=== PATIENT | female | born 1940 | race Caucasian/White ===

== ENCOUNTER 2017-09-13 07:36 | Emergency (ER) | payer OTHER ==
[~2017-09-13] VITALS: Ht 157.5 cm; Wt 56.7 kg
[2017-09-13 07:40] VITALS: BP_SYST 163
--- NOTE | 2017-09-13 07:45 | NUR ---
Pt placed to ER waiting room in stable condition.
[2017-09-13 08:30] LABS: BASOPHILS # (AUTO) 0.1 K/uL (0.0-0.2); BASOPHILS % (AUTO) 1.1 % (0.0-2.0); EOSINOPHILS % (AUTO) 0.1 % (0.0-4.0); HEMATOCRIT 45.9 % (36-48); HEMOGLOBIN 14.9 g/dL (12.0-16.0); LYMPHOCYTES # (AUTO) 0.6 K/uL (1.0-5.5); LYMPHOCYTES % (AUTO) 4.8 % (20.5-51.5); MEAN CORPUSCULAR HEMOGLOBIN 28 pg (27-31); MEAN CORPUSCULAR HGB CONC 32 % (32-36); MEAN CORPUSCULAR VOLUME 87 fL (79.0-98.0); MONOCYTES # (AUTO) 0.6 K/uL (0.0-1.0); MONOCYTES % (AUTO) 5.4 % (1.7-9.3); NEUTROPHILS # (AUTO) 10.5 K/uL (1.8-7.7); NEUTROPHILS % (AUTO) 88.6 % (40.0-70.0); PLATELET COUNT (AUTO) 146 K/uL (130-430); RED BLOOD CELL COUNT(AUTO) 5.26 MIL/uL (4.2-6.2); RED CELL DISTRIBUTION WIDTH 12.8 % (9.0-15.0); WHITE BLOOD COUNT (AUTO) 11.8 K/uL (4.8-10.8)
--- NOTE | 2017-09-13 08:45 | NUR ---
Pt placed to ER bed 04. Report given to JALEN Duncan.
--- NOTE | 2017-09-13 08:48 | NUR ---
PT AAOx4, ABLE TO VERBALIZE NEEDS. PT STATES SHE HAS HAD FEVER, COUGH, RUNNY NOSE x5 DAYS, PT DENIES SHORTNESS OF BREATH/CHEST PAIN. PT STATES SHE HAD PNEUMONIA 6 MONTHS AGO AND HAD SIMILAR SYMPTOMS. PT STATES SHE HAS BEEN TAKING IBUPROFEN FOR FEVER AND IT HAS HELPED, PT HAS TEMP 100.7F AT THIS TIME. NO OTHER INJURIES/COMPLAINTS PER PT OR NOTED.
[2017-09-13 08:56] LABS: ANION GAP 12 (5-15); CALCIUM 9.2 mg/dL (8.4-11.0); CHLORIDE 103 mmol/L (98-107); CREATININE 1.04 mg/dL (0.55-1.30); GLUCOSE 154 mg/dL (70-99); POTASSIUM 3.5 mmol/L (3.5-5.1); SODIUM SERUM 141 mmol/L (136-145); UREA NITROGEN, BLOOD 19 mg/dL (8-21)
[2017-09-13 09:00] LABS: ALANINE AMINOTRANSFERASE 31 U/L (12-78); ALBUMIN 3.5 g/dL (3.4-4.8); ASPARTATE AMINOTRANSFERASE 23 U/L (10-37); TOTAL BILIRUBIN 0.8 mg/dL (0.0-1.0)
[2017-09-13 09:36] LABS: BILIRUBIN,URINE NEGATIVE (NEGATIVE); BLOOD, URINE NEGATIVE (NEGATIVE); CLARITY/URINE CLEAR (CLEAR); COLOR,URINE YELLOW (YELLOW); GLUCOSE,URINE NEGATIVE (NEGATIVE); KETONES,URINE 1+ (NEGATIVE); LEUKOCYTE ESTERASE ,URINE NEGATIVE (NEGATIVE); NITRITE, URINE NEGATIVE (NEGATIVE); PH,URINE 5.5 (5.0-8.0); PROTEIN URINE 1+ (NEGATIVE); UROBILINOGEN,URINE 0.2 (0.2-1.0)
[2017-09-13 09:38] LABS: INFLUENZA A&B ANTIGEN SCREEN NEGATIVE FOR A & B (NEGATIVE); STREPTOCOCCUS A SCREEN (RAPID) NEGATIVE (NEGATIVE)
[2017-09-13] MEDS ORDERED: ALBUTEROL SULFATE 0.083% 2.5 MG/3 ML VIAL.NEB IH ONE (10:00)
[2017-09-13] MEDS ORDERED: cefTRIAXone 1 GM in D5W 50 ML IV ONE (10:00)
[2017-09-13] MEDS ORDERED: IPRATROPIUM BROM 0.5 MG/2.5 ML VIAL.NEB (ATROVENT) IH ONE (10:00)
[2017-09-13] MEDS ORDERED: methylPREDNISolone SOD SUCC/PF 62.5 MG/ML VIAL IVP ONE (10:00)
[2017-09-13] MEDS ORDERED: MAGNESIUM SULFATE 1 GM in NS 50 ML IV ONE (10:00)
[2017-09-13] MEDS ORDERED: ALBUTEROL SULFATE 0.083% 2.5 MG/3 ML VIAL.NEB INH ONE (10:01)
[2017-09-13] MEDS ORDERED: cefTRIAXone 1 GM VIAL ONE (10:06)
[2017-09-13] MEDS ORDERED: MAGNESIUM SULFATE 1 GM/2 ML VIAL ONE (10:06)
[2017-09-13 11:40] LABS: BACTERIA,URINE FEW /HPF (None Seen); RBC,URINE 0-3 /HPF (0-3); WBC,URINE 0-3 /HPF (0-3)
--- NOTE | 2017-09-13 12:01 | NUR ---
Patient given written and verbal discharge instructions and verbalizes understanding. ER MD discussed with patient the results and treatment provided. Patient in stable condition. ID arm band removed. IV catheter removed intact and dressing applied, no active bleeding. Rx of ZITHROMAX, PROVENTIL INHALER, TYLENOL WITH CODEINS given. Patient educated on pain management and to follow up with PMD. Pain Scale 0/10. Opportunity for questions provided and answered.
[2017-09-13 12:04] VITALS: BP_SYST 146
== END 2017-09-13 12:03 | disposition home or self-care (01) ==
LOC: SED 07:36
DX: J18.9 Pneumonia, unspecified organism (principal); J44.9 Chronic obstructive pulmonary disease, unspecified
CPT/HCPCS: 36415; 71046; 80053; 81000; 85025; 86403; 86710; 87081; 94640; 96365; 96367; 96375; 99285; J0696; J2930; J3475; J7060

== ENCOUNTER 2023-04-21 14:27 | Inpatient (IN) | payer OTHER ==
[~2023-04-21] VITALS: Ht 157.5 cm; Wt 60.3 kg
[2023-04-21] MEDS ORDERED: KETOROLAC TROMETHAMINE 30 MG VIAL IM ONE (15:00)
[2023-04-21 15:18] VITALS: BP_SYST 162; PULSE 80; RESP 18; TEMP 98.2; O2SAT 95
[2023-04-21] MEDS ORDERED: ONDANSETRON HCL 4 MG/2 ML VIAL IVP ONE (17:15)
[2023-04-21] MEDS ORDERED: MORPHINE 4 MG INJ. 4 MG/ML VIAL IVP ONE (17:15)
[2023-04-21] MEDS ORDERED: NACL 0.9% 1,000 ML IV ONE (17:15)
[2023-04-21 18:05] LABS: BASOPHILS # (AUTO) 0.1 K/uL (0.0-0.2); BASOPHILS % (AUTO) 0.6 % (0.0-2.0); EOSINOPHILS % (AUTO) 0.2 % (0.0-4.0); HEMATOCRIT 45.1 % (36-48); HEMOGLOBIN 14.5 g/dL (12.0-16.0); LYMPHOCYTES # (AUTO) 1.2 K/uL (1.0-5.5); LYMPHOCYTES % (AUTO) 7.1 % (20.5-51.5); MEAN CORPUSCULAR HEMOGLOBIN 29 pg (27-31); MEAN CORPUSCULAR HGB CONC 32 % (32-36); MEAN CORPUSCULAR VOLUME 89 fL (79.0-98.0); MONOCYTES # (AUTO) 1.1 K/uL (0.0-1.0); MONOCYTES % (AUTO) 6.5 % (1.7-9.3); NEUTROPHILS # (AUTO) 14.8 K/uL (1.8-7.7); NEUTROPHILS % (AUTO) 85.6 % (40.0-70.0); PLATELET COUNT (AUTO) 224 K/uL (130-430); RED BLOOD CELL COUNT(AUTO) 5.08 MIL/uL (4.2-6.2); RED CELL DISTRIBUTION WIDTH 13.8 % (9.0-15.0); WHITE BLOOD COUNT (AUTO) 17.3 K/uL (4.8-10.8)
[2023-04-21 18:06] LABS: ALANINE AMINOTRANSFERASE 19 U/L (12-78); ANION GAP 8 (5-15); ASPARTATE AMINOTRANSFERASE 17 U/L (10-37); CALCIUM 9.4 mg/dL (8.4-11.0); CARBON DIOXIDE 25 mmol/L (23-29); CHLORIDE 106 mmol/L (98-107); CREATININE 1.32 mg/dL (0.55-1.30); GLUCOSE 191 mg/dL (74-106); POTASSIUM 4.1 mmol/L (3.5-5.1); SODIUM SERUM 139 mmol/L (136-145); TOTAL BILIRUBIN 0.3 mg/dL (0.0-1.0); UREA NITROGEN, BLOOD 44 mg/dL (8-21)
[2023-04-21] MEDS ORDERED: BACITRACIN 1 GM OINT TP ONE (20:33)
[2023-04-21] MEDS ORDERED: D5/0.45 NS 1,000 ML IV ONE (21:30)
[2023-04-21] MEDS ORDERED: MORPHINE 4 MG INJ. 4 MG/ML VIAL ONE (21:36)
[2023-04-21] MEDS ORDERED: ONDANSETRON HCL 4 MG/2 ML VIAL ONE (21:36)
[2023-04-21] MEDS ORDERED: FAMO20TA8 PO (22:55)
[2023-04-21] MEDS ORDERED: DILT300C54 PO (22:55)
[2023-04-21] MEDS ORDERED: VALS160T2 PO (22:55)
[2023-04-21] MEDS ORDERED: AMLO10TA88 PO (22:55)
[2023-04-22] VITALS (10 sets, daily range): BP systolic 16–176; PULSE 85–91; RESP 14–18; TEMP 96.2–98.4; O2SAT 94–98
[2023-04-22] MEDS ORDERED: LORazepam 2 MG/ML VIAL IVP PRN (00:45)
[2023-04-22] MEDS ORDERED: ONDANSETRON HCL 4 MG/2 ML VIAL IVP PRN ×2 (00:45→19:30)
[2023-04-22] MEDS ORDERED: NALOXONE HCL 0.4 MG/ML AMP (NARCAN) IVP PRN ×2 (00:45→19:30)
[2023-04-22] MEDS ORDERED: MORPHINE 4 MG INJ. 4 MG/ML VIAL IVP PRN ×3 (00:45→19:30)
[2023-04-22 05:29] LABS: BILIRUBIN,URINE NEGATIVE (NEGATIVE); CLARITY/URINE SL CLOUDY (CLEAR); COLOR,URINE YELLOW (YELLOW); GLUCOSE,URINE NEGATIVE (NEGATIVE); KETONES,URINE NEGATIVE (NEGATIVE); LEUKOCYTE ESTERASE ,URINE 1+ (NEGATIVE); NITRITE, URINE POSITIVE (NEGATIVE); PROTEIN URINE NEGATIVE (NEGATIVE); UROBILINOGEN,URINE 0.2 (0.2-1.0)
[2023-04-22 06:54] LABS: BASOPHILS # (AUTO) 0.1 K/uL (0.0-0.2); BASOPHILS % (AUTO) 0.7 % (0.0-2.0); EOSINOPHILS # (AUTO) 0.2 K/uL (0.0-0.4); EOSINOPHILS % (AUTO) 1.9 % (0.0-4.0); HEMATOCRIT 40.3 % (36-48); HEMOGLOBIN 13.1 g/dL (12.0-16.0); LYMPHOCYTES % (AUTO) 9.1 % (20.5-51.5); MEAN CORPUSCULAR HEMOGLOBIN 29 pg (27-31); MEAN CORPUSCULAR HGB CONC 33 % (32-36); MEAN CORPUSCULAR VOLUME 89 fL (79.0-98.0); MONOCYTES # (AUTO) 0.8 K/uL (0.0-1.0); MONOCYTES % (AUTO) 7.5 % (1.7-9.3); NEUTROPHILS # (AUTO) 8.9 K/uL (1.8-7.7); NEUTROPHILS % (AUTO) 80.8 % (40.0-70.0); PLATELET COUNT (AUTO) 168 K/uL (130-430); RED BLOOD CELL COUNT(AUTO) 4.52 MIL/uL (4.2-6.2); RED CELL DISTRIBUTION WIDTH 13.5 % (9.0-15.0)
[2023-04-22 07:22] LABS: BLOOD, URINE TRACE (NEGATIVE)
[2023-04-22 07:25] LABS: ANION GAP 8 (5-15); CALCIUM 8.3 mg/dL (8.4-11.0); CARBON DIOXIDE 25 mmol/L (23-29); CHLORIDE 110 mmol/L (98-107); CREATININE 0.84 mg/dL (0.55-1.30); GLUCOSE 169 mg/dL (74-106); POTASSIUM 3.9 mmol/L (3.5-5.1); SODIUM SERUM 143 mmol/L (136-145); UREA NITROGEN, BLOOD 29 mg/dL (8-21)
[2023-04-22 07:43] LABS: BACTERIA,URINE MANY /HPF (None Seen); MUCUS,URINE 1+ /LPF (None Seen)
[2023-04-22] MEDS: MORPHINE 2 MG/ML INJ. SYRINGE IVP PRN (11:01)
[2023-04-22] MEDS ORDERED: CARVEDILOL 12.5 MG TABLET (COREG) PO ONE (12:00)
[2023-04-22] MEDS ORDERED: cefTRIAXone 1 GM in D5W 50 ML IV SCH (12:00)
[2023-04-22] MEDS ORDERED: fentaNYL CITRATE/PF 100 MCG/2 ML AMP ONE (17:27)
[2023-04-22] MEDS ORDERED: LR 1,000 ML IV.SOLN IV ONE (17:27)
[2023-04-22] MEDS ORDERED: NS IRRIG SOLN 1000 ML IR ONE (17:27)
[2023-04-22] MEDS ORDERED: SEVOFLURANE 15 MIN GAS INH ONE (17:27)
[2023-04-22] MEDS ORDERED: LIDOCAINE 2%, 20 ML MDV ONE (17:27)
[2023-04-22] MEDS ORDERED: ePHEDrine sulfate 50 MG/ML VIAL ONE (17:27)
[2023-04-22] MEDS ORDERED: PROPOFOL 200MG/ 20ML VIAL (DIPRIVAN) IV ONE (17:27)
[2023-04-22] MEDS ORDERED: cefTRIAXone 1 GM VIAL ONE (17:27)
[2023-04-22] MEDS ORDERED: LIDOCAINE/EPI 1% 1:100000 20 ML VIAL ONE (17:27)
[2023-04-22] MEDS ORDERED: TRANEXAMIC ACID 1,000 MG/10 ML VIAL ONE (17:27)
[2023-04-22] MEDS ORDERED: ONDANSETRON HCL 4 MG/2 ML VIAL ONE (17:27)
[2023-04-22] MEDS ORDERED: BUPIVACAINE /PF 0.5% 30 ML VIAL ONE (17:27)
[2023-04-22] MEDS ORDERED: LR 1,000 ML IV SCH (19:30)
[2023-04-22] MEDS ORDERED: VALSARTAN Non-Formulary 160 MG TABLET PO ONE (22:15)
[2023-04-22] MEDS: ceFAZolin SODIUM 2 GM in D5W 100 ML IV SCH (22:56)
[2023-04-22] MEDS: traMADol HCL HCL 50 MG TABLET (ULTRAM) PO PRN (23:29)
[2023-04-23] MEDS ORDERED: amLODIPine BESYLATE 10 MG TABLET PO ONE
[2023-04-23 00:33] VITALS: BP_SYST 158; PULSE 85; RESP 14; TEMP 96.2; O2SAT 95
[2023-04-23 05:01] LABS: BASOPHILS % (AUTO) 0.4 % (0.0-2.0); EOSINOPHILS # (AUTO) 0.2 K/uL (0.0-0.4); EOSINOPHILS % (AUTO) 2.1 % (0.0-4.0); HEMATOCRIT 38.8 % (36-48); HEMOGLOBIN 12.6 g/dL (12.0-16.0); LYMPHOCYTES # (AUTO) 0.8 K/uL (1.0-5.5); LYMPHOCYTES % (AUTO) 6.8 % (20.5-51.5); MEAN CORPUSCULAR HEMOGLOBIN 29 pg (27-31); MEAN CORPUSCULAR HGB CONC 33 % (32-36); MEAN CORPUSCULAR VOLUME 89 fL (79.0-98.0); MONOCYTES % (AUTO) 8.2 % (1.7-9.3); NEUTROPHILS # (AUTO) 9.7 K/uL (1.8-7.7); NEUTROPHILS % (AUTO) 82.5 % (40.0-70.0); PLATELET COUNT (AUTO) 148 K/uL (130-430); RED BLOOD CELL COUNT(AUTO) 4.36 MIL/uL (4.2-6.2); RED CELL DISTRIBUTION WIDTH 13.5 % (9.0-15.0); WHITE BLOOD COUNT (AUTO) 11.7 K/uL (4.8-10.8)
[2023-04-23 05:16] LABS: ERYTHROCYTE SEDIMENTATION RATE 5 MM/HR (0-20)
[2023-04-23 05:40] LABS: ANION GAP 5 (5-15); CALCIUM 8.2 mg/dL (8.4-11.0); CARBON DIOXIDE 29 mmol/L (23-29); CHLORIDE 107 mmol/L (98-107); CREATININE 0.79 mg/dL (0.55-1.30); GLUCOSE 141 mg/dL (74-106); POTASSIUM 3.9 mmol/L (3.5-5.1); SODIUM SERUM 141 mmol/L (136-145); UREA NITROGEN, BLOOD 17 mg/dL (8-21)
[2023-04-23] MEDS: ceFAZolin SODIUM 2 GM in D5W 100 ML IV SCH ×2 (05:59→14:43)
[2023-04-23] MEDS: ENOXAPARIN SODIUM 40 MG/0.4 ML SYRINGE SUBCUT SCH (10:50)
[2023-04-23] MEDS: traMADol HCL HCL 50 MG TABLET (ULTRAM) PO PRN ×2 (10:51→20:58)
[2023-04-23 12:11] VITALS: BP_SYST 173; PULSE 92; RESP 16; TEMP 96.9; O2SAT 96
[2023-04-23] MEDS: MORPHINE 2 MG/ML INJ. SYRINGE IVP PRN (14:37)
[2023-04-23 20:00] VITALS: BP_SYST 195; PULSE 92; RESP 18; TEMP 98.3; O2SAT 96
[2023-04-23] MEDS ORDERED: cloNIDine HCL 0.2 MG TABLET PO PRN (21:15)
[2023-04-24] VITALS (7 sets, daily range): BP systolic 133–163; PULSE 78–88; RESP 16–18; TEMP 98.3–99.2; O2SAT 93–96
[2023-04-24 06:49] LABS: BASOPHILS % (AUTO) 0.5 % (0.0-2.0); EOSINOPHILS # (AUTO) 0.2 K/uL (0.0-0.4); EOSINOPHILS % (AUTO) 2.4 % (0.0-4.0); HEMATOCRIT 39.4 % (36-48); HEMOGLOBIN 12.7 g/dL (12.0-16.0); LYMPHOCYTES # (AUTO) 1.4 K/uL (1.0-5.5); LYMPHOCYTES % (AUTO) 14.3 % (20.5-51.5); MEAN CORPUSCULAR HEMOGLOBIN 29 pg (27-31); MEAN CORPUSCULAR HGB CONC 32 % (32-36); MEAN CORPUSCULAR VOLUME 89 fL (79.0-98.0); MONOCYTES % (AUTO) 10.3 % (1.7-9.3); NEUTROPHILS # (AUTO) 7.1 K/uL (1.8-7.7); NEUTROPHILS % (AUTO) 72.5 % (40.0-70.0); PLATELET COUNT (AUTO) 151 K/uL (130-430); RED BLOOD CELL COUNT(AUTO) 4.43 MIL/uL (4.2-6.2); RED CELL DISTRIBUTION WIDTH 13.1 % (9.0-15.0); WHITE BLOOD COUNT (AUTO) 9.8 K/uL (4.8-10.8)
[2023-04-24 07:04] LABS: ANION GAP 6 (5-15); CALCIUM 8.5 mg/dL (8.4-11.0); CARBON DIOXIDE 27 mmol/L (23-29); CHLORIDE 104 mmol/L (98-107); CREATININE 0.75 mg/dL (0.55-1.30); GLUCOSE 133 mg/dL (74-106); POTASSIUM 3.6 mmol/L (3.5-5.1); SODIUM SERUM 137 mmol/L (136-145); UREA NITROGEN, BLOOD 18 mg/dL (8-21)
[2023-04-24 07:19] LABS: ERYTHROCYTE SEDIMENTATION RATE 25 MM/HR (0-20)
[2023-04-24] MEDS: traMADol HCL HCL 50 MG TABLET (ULTRAM) PO PRN ×3 (08:15→21:39)
[2023-04-24] MEDS: ENOXAPARIN SODIUM 40 MG/0.4 ML SYRINGE SUBCUT SCH (09:42)
[2023-04-24] MEDS: FAMOTIDINE 20 MG TABLET PO SCH (09:42)
[2023-04-24] MEDS: amLODIPine BESYLATE 10 MG TABLET PO SCH (09:44)
[2023-04-24] MEDS: DILTIAZEM HCL 120 MG CAP.SR.24H PO SCH (09:44)
[2023-04-24] MEDS: cefTRIAXone 1 GM in D5W 50 ML IV SCH (11:34)
[2023-04-24] MEDS ORDERED: LOSARTAN POTASSIUM 50 MG TABLET (COZAAR) PO SCH (21:00)
[2023-04-25 00:38] VITALS: BP_SYST 158; PULSE 82; RESP 16; TEMP 97.1; O2SAT 94
[2023-04-25 07:26] LABS: BASOPHILS # (AUTO) 0.1 K/uL (0.0-0.2); BASOPHILS % (AUTO) 0.8 % (0.0-2.0); EOSINOPHILS # (AUTO) 0.3 K/uL (0.0-0.4); EOSINOPHILS % (AUTO) 2.6 % (0.0-4.0); HEMATOCRIT 37.2 % (36-48); HEMOGLOBIN 12.2 g/dL (12.0-16.0); LYMPHOCYTES # (AUTO) 1.2 K/uL (1.0-5.5); MEAN CORPUSCULAR HEMOGLOBIN 29 pg (27-31); MEAN CORPUSCULAR HGB CONC 33 % (32-36); MEAN CORPUSCULAR VOLUME 88 fL (79.0-98.0); MONOCYTES # (AUTO) 1.1 K/uL (0.0-1.0); MONOCYTES % (AUTO) 10.6 % (1.7-9.3); NEUTROPHILS # (AUTO) 7.4 K/uL (1.8-7.7); PLATELET COUNT (AUTO) 159 K/uL (130-430); RED BLOOD CELL COUNT(AUTO) 4.23 MIL/uL (4.2-6.2); RED CELL DISTRIBUTION WIDTH 13.4 % (9.0-15.0); WHITE BLOOD COUNT (AUTO) 10.1 K/uL (4.8-10.8)
[2023-04-25 07:36] LABS: ERYTHROCYTE SEDIMENTATION RATE 39 MM/HR (0-20)
[2023-04-25 07:55] LABS: ANION GAP 5 (5-15); CALCIUM 8.7 mg/dL (8.4-11.0); CARBON DIOXIDE 28 mmol/L (23-29); CHLORIDE 102 mmol/L (98-107); CREATININE 0.75 mg/dL (0.55-1.30); GLUCOSE 147 mg/dL (74-106); SODIUM SERUM 135 mmol/L (136-145); UREA NITROGEN, BLOOD 22 mg/dL (8-21)
[2023-04-25 08:00] VITALS: BP_SYST 169; PULSE 63; RESP 14; TEMP 98.1; O2SAT 92
[2023-04-25] MEDS: DILTIAZEM HCL 120 MG CAP.SR.24H PO SCH (08:36)
[2023-04-25] MEDS: traMADol HCL HCL 50 MG TABLET (ULTRAM) PO PRN ×2 (08:37→20:32)
[2023-04-25] MEDS: FAMOTIDINE 20 MG TABLET PO SCH (08:38)
[2023-04-25] MEDS: amLODIPine BESYLATE 10 MG TABLET PO SCH (08:39)
[2023-04-25] MEDS: ENOXAPARIN SODIUM 40 MG/0.4 ML SYRINGE SUBCUT SCH (08:39)
[2023-04-25] MEDS ORDERED: COMMUNICATION ORDER XX ONE (11:30)
[2023-04-25] MEDS: cefTRIAXone 1 GM in D5W 50 ML IV SCH (11:48)
[2023-04-25 12:36] VITALS: BP_SYST 163; PULSE 83; RESP 18; TEMP 97.2; O2SAT 93
[2023-04-25 16:42] VITALS: BP_SYST 165; PULSE 83; RESP 18; TEMP 99.5; O2SAT 90
[2023-04-25 19:30] VITALS: O2SAT 92
[2023-04-25 20:00] VITALS: BP_SYST 168; PULSE 83; RESP 18; TEMP 99; O2SAT 92
[2023-04-25] MEDS: VALSARTAN 160 MG PO SCH (20:31)
[2023-04-26 00:15] VITALS: BP_SYST 157; PULSE 78; RESP 18; TEMP 97.5; O2SAT 91
[2023-04-26] MEDS: MORPHINE 2 MG/ML INJ. SYRINGE IVP PRN (02:32)
[2023-04-26 05:41] LABS: ALANINE AMINOTRANSFERASE 6 U/L (12-78); ALBUMIN 2.3 g/dL (3.4-4.8); ANION GAP 7 (5-15); ASPARTATE AMINOTRANSFERASE 13 U/L (10-37); CALCIUM 8.5 mg/dL (8.4-11.0); CARBON DIOXIDE 27 mmol/L (23-29); CHLORIDE 106 mmol/L (98-107); CREATININE 0.78 mg/dL (0.55-1.30); GLUCOSE 127 mg/dL (74-106); PHOSPHORUS 3.6 mg/dL (2.7-4.5); POTASSIUM 3.8 mmol/L (3.5-5.1); SODIUM SERUM 140 mmol/L (136-145); TOTAL BILIRUBIN 0.3 mg/dL (0.0-1.0); TOTAL PROTEIN, SERUM 5.4 g/dL (6.4-8.3); UREA NITROGEN, BLOOD 19 mg/dL (8-21)
[2023-04-26 05:50] LABS: BASOPHILS # (AUTO) 0.1 K/uL (0.0-0.2); BASOPHILS % (AUTO) 1.1 % (0.0-2.0); EOSINOPHILS # (AUTO) 0.2 K/uL (0.0-0.4); EOSINOPHILS % (AUTO) 1.8 % (0.0-4.0); HEMATOCRIT 36.4 % (36-48); HEMOGLOBIN 12.1 g/dL (12.0-16.0); LYMPHOCYTES % (AUTO) 9.4 % (20.5-51.5); MEAN CORPUSCULAR HEMOGLOBIN 29 pg (27-31); MEAN CORPUSCULAR HGB CONC 33 % (32-36); MEAN CORPUSCULAR VOLUME 87 fL (79.0-98.0); MONOCYTES # (AUTO) 1.1 K/uL (0.0-1.0); NEUTROPHILS # (AUTO) 8.2 K/uL (1.8-7.7); NEUTROPHILS % (AUTO) 77.7 % (40.0-70.0); PLATELET COUNT (AUTO) 161 K/uL (130-430); RED BLOOD CELL COUNT(AUTO) 4.18 MIL/uL (4.2-6.2); RED CELL DISTRIBUTION WIDTH 13.1 % (9.0-15.0); WHITE BLOOD COUNT (AUTO) 10.5 K/uL (4.8-10.8)
[2023-04-26 06:00] LABS: ERYTHROCYTE SEDIMENTATION RATE 41 MM/HR (0-20)
[2023-04-26 08:00] VITALS: BP_SYST 161; PULSE 88; RESP 16; TEMP 98.1; O2SAT 95
[2023-04-26] MEDS: DILTIAZEM HCL 120 MG CAP.SR.24H PO SCH (08:55)
[2023-04-26] MEDS: FAMOTIDINE 20 MG TABLET PO SCH (08:55)
[2023-04-26] MEDS: ENOXAPARIN SODIUM 40 MG/0.4 ML SYRINGE SUBCUT SCH (08:56)
[2023-04-26] MEDS: amLODIPine BESYLATE 10 MG TABLET PO SCH (08:56)
[2023-04-26] MEDS: VALSARTAN 160 MG PO SCH ×2 (08:58→09:05)
[2023-04-26] MEDS: cefTRIAXone 1 GM in D5W 50 ML IV SCH (11:34)
[2023-04-26 12:00] VITALS: BP_SYST 160; PULSE 91; RESP 18; TEMP 98.8; O2SAT 95
[2023-04-26] MEDS ORDERED: TRAM50TA2 PO (15:15)
[2023-04-26 16:00] VITALS: BP_SYST 157; PULSE 78; RESP 18; TEMP 98.9; O2SAT 94
[2023-04-26 20:00] VITALS: BP_SYST 166; PULSE 91; RESP 18; TEMP 99.2; O2SAT 92; O2SAT 93
[2023-04-26] MEDS ORDERED: VALSARTAN 160 MG PO SCH (22:15)
[2023-04-26] MEDS ORDERED: BISACODYL 10 MG/SUPPOSITORY RC ONE (23:00)
[2023-04-27 00:27] VITALS: BP_SYST 166; PULSE 92; RESP 19; TEMP 98.6; O2SAT 95
[2023-04-27 08:00] VITALS: BP_SYST 159; PULSE 94; RESP 18; TEMP 98.8; O2SAT 96
[2023-04-27] MEDS: DILTIAZEM HCL 120 MG CAP.SR.24H PO SCH (08:33)
[2023-04-27] MEDS: FAMOTIDINE 20 MG TABLET PO SCH (08:33)
[2023-04-27] MEDS: ENOXAPARIN SODIUM 40 MG/0.4 ML SYRINGE SUBCUT SCH (08:34)
[2023-04-27] MEDS: amLODIPine BESYLATE 10 MG TABLET PO SCH (08:34)
[2023-04-27] MEDS ORDERED: CIPROFLOXACIN HCL 500 MG TABLET PO SCH (10:00)
[2023-04-27] MEDS ORDERED: CIPR250T4 PO (12:36)
[2023-04-27 15:51] VITALS: BP_SYST 155; PULSE 86; RESP 18; TEMP 97.3; O2SAT 93
[2023-04-27 16:03] VITALS: BP_SYST 155; PULSE 86; RESP 18; TEMP 97.3; O2SAT 93
== END 2023-04-27 16:42 | disposition home health service (06) | DRG 481 ==
LOC: SED 14:27 → SMU 21:20
PROVIDERS: ADMIT Specialist; ATTEND Specialist
PROC: 0QS734Z Reposition Left Upper Femur with Internal Fixation Device, Percutaneous Approach (ICD-10-PCS; principal; 2023-04-22 17:27)
DX: S72.012A Unspecified intracapsular fracture of left femur, initial encounter for closed fracture (principal); N17.9 Acute kidney failure, unspecified; N39.0 Urinary tract infection, site not specified; B96.20 Unspecified Escherichia coli [E. coli] as the cause of diseases classified elsewhere; M16.0 Bilateral primary osteoarthritis of hip; E11.65 Type 2 diabetes mellitus with hyperglycemia; I25.10 Atherosclerotic heart disease of native coronary artery without angina pectoris; R79.89 Other specified abnormal findings of blood chemistry; I10 Essential (primary) hypertension; E83.52 Hypercalcemia; S60.512A Abrasion of left hand, initial encounter; W18.39XA Other fall on same level, initial encounter; Y93.89 Activity, other specified; Y92.89 Other specified places as the place of occurrence of the external cause; Y99.8 Other external cause status; Z88.5 Allergy status to narcotic agent; Z87.01 Personal history of pneumonia (recurrent)
CPT/HCPCS: 36415; 71045; 72170-TC; 73502; 76001; 80048; 80053; 81000; 83735; 84100; 85025; 85610-TC; 85651-TC; 85730-TC; 86886; 86900; 86901; 87040; 87081; 87086; 93005; 93306; 96372; 96374; 96375; 97163-GP; 97530-GP; 99285; C1713; C1776; J0696; J1650; J1885; J2001; J2270; J2405; J2704; J3010; J3490; J7050; J7060; J7120

== ENCOUNTER 2023-08-14 09:15 | Inpatient (IN) | payer OTHER ==
[~2023-08-14] VITALS: Ht 157.5 cm; Wt 54.4 kg
[~2023-08-14 09:15] MED LIST: AMLO10TA88 PO; CIPR250T4 PO; DILT300C54 PO; FAMO20TA8 PO; TRAM50TA2 PO; VALS160T2 PO
[2023-08-14 09:32] VITALS: BP_SYST 193; PULSE 87; RESP 18; TEMP 97.9; O2SAT 97
[2023-08-14 10:14] LABS: BASOPHILS # (AUTO) 0.1 K/uL (0.0-0.2); BASOPHILS % (AUTO) 1.1 % (0.0-2.0); EOSINOPHILS % (AUTO) 0.4 % (0.0-4.0); HEMOGLOBIN 13.8 g/dL (12.0-16.0); LYMPHOCYTES # (AUTO) 2.1 K/uL (1.0-5.5); LYMPHOCYTES % (AUTO) 19.7 % (20.5-51.5); MEAN CORPUSCULAR HEMOGLOBIN 29 pg (27-31); MEAN CORPUSCULAR HGB CONC 32 % (32-36); MEAN CORPUSCULAR VOLUME 90 fL (79.0-98.0); MONOCYTES % (AUTO) 9.2 % (1.7-9.3); NEUTROPHILS # (AUTO) 7.5 K/uL (1.8-7.7); NEUTROPHILS % (AUTO) 69.6 % (40.0-70.0); PLATELET COUNT (AUTO) 247 K/uL (130-430); RED BLOOD CELL COUNT(AUTO) 4.81 MIL/uL (4.2-6.2); RED CELL DISTRIBUTION WIDTH 13.6 % (9.0-15.0); WHITE BLOOD COUNT (AUTO) 10.7 K/uL (4.8-10.8)
[2023-08-14 10:42] LABS: PROTHROMBIN TIME 9.9 SECS (9.5-12.5)
[2023-08-14 10:54] LABS: ALANINE AMINOTRANSFERASE 22 U/L (12-78); ALBUMIN 3.8 g/dL (3.4-4.8); ANION GAP 11 (5-15); ASPARTATE AMINOTRANSFERASE 14 U/L (10-37); CALCIUM 9.9 mg/dL (8.4-11.0); CARBON DIOXIDE 24 mmol/L (23-29); CHLORIDE 104 mmol/L (98-107); CREATININE 0.99 mg/dL (0.55-1.30); GLUCOSE 169 mg/dL (74-106); POTASSIUM 4.1 mmol/L (3.5-5.1); SODIUM SERUM 139 mmol/L (136-145); TOTAL BILIRUBIN 0.2 mg/dL (0.0-1.0); TOTAL PROTEIN, SERUM 7.4 g/dL (6.4-8.3); UREA NITROGEN, BLOOD 32 mg/dL (8-21)
[2023-08-14] MEDS ORDERED: ONDANSETRON HCL 4 MG/2 ML VIAL IVP PRN (12:15)
[2023-08-14] MEDS ORDERED: KETOROLAC TROMETHAMINE 15 MG VIAL IVP PRN (12:15)
[2023-08-14] MEDS ORDERED: ACETAMINOPHEN 325 MG TABLET PO PRN ×2 (12:15→12:30)
[2023-08-14] MEDS ORDERED: PANTOPRAZOLE SODIUM 40 MG/VIAL (PROTONIX) IVP ONE (12:30)
[2023-08-14] MEDS ORDERED: amLODIPine BESYLATE 10 MG TABLET PO ONE (12:30)
[2023-08-14] MEDS ORDERED: hydrALAZINE HCL 20 MG/ML VIAL IVP PRN (12:30)
[2023-08-14] MEDS: NACL 0.9% 1,000 ML IV SCH ×2 (13:14→22:50)
[2023-08-14 13:39] LABS: BILIRUBIN,URINE NEGATIVE (NEGATIVE); BLOOD, URINE NEGATIVE (NEGATIVE); CLARITY/URINE CLEAR (CLEAR); COLOR,URINE YELLOW (YELLOW); GLUCOSE,URINE NEGATIVE (NEGATIVE); KETONES,URINE NEGATIVE (NEGATIVE); LEUKOCYTE ESTERASE ,URINE NEGATIVE (NEGATIVE); NITRITE, URINE NEGATIVE (NEGATIVE); PROTEIN URINE NEGATIVE (NEGATIVE); UROBILINOGEN,URINE 0.2 (0.2-1.0)
[2023-08-14] MEDS ORDERED: VALSARTAN Non-Formulary 160 MG TABLET PO SCH (16:00)
[2023-08-14] MEDS ORDERED: DILTIAZEM HCL 120 MG CAP.SR.24H PO ONE (16:30)
[2023-08-14] MEDS ORDERED: LOSARTAN POTASSIUM 50 MG TABLET (COZAAR) PO ONE (16:30)
[2023-08-15] MEDS ORDERED: VANCOMYCIN HCL 1000 MG/VIAL IV ONE (08:02)
[2023-08-15] MEDS ORDERED: NS IRRIG SOLN 1000 ML IR ONE (08:02)
[2023-08-15] MEDS ORDERED: LR 1,000 ML IV.SOLN IV ONE (08:02)
[2023-08-15] MEDS ORDERED: WATER FOR INJECTION,STERILE 20 ML VIAL IV ONE (08:02)
[2023-08-15] MEDS ORDERED: LIDOCAINE/EPI 1% 1:100000 20 ML VIAL ONE (08:02)
[2023-08-15] MEDS ORDERED: BUPIVACAINE /PF 0.25% 30 ML VIAL INJ ONE (08:02)
[2023-08-15] MEDS ORDERED: TRANEXAMIC ACID 1,000 MG/10 ML VIAL ONE (08:02)
[2023-08-15 08:24] LABS: BASOPHILS # (AUTO) 0.1 K/uL (0.0-0.2); BASOPHILS % (AUTO) 1.2 % (0.0-2.0); EOSINOPHILS % (AUTO) 0.4 % (0.0-4.0); HEMATOCRIT 39.3 % (36-48); HEMOGLOBIN 12.6 g/dL (12.0-16.0); LYMPHOCYTES # (AUTO) 1.6 K/uL (1.0-5.5); LYMPHOCYTES % (AUTO) 17.3 % (20.5-51.5); MEAN CORPUSCULAR HEMOGLOBIN 28 pg (27-31); MEAN CORPUSCULAR HGB CONC 32 % (32-36); MEAN CORPUSCULAR VOLUME 89 fL (79.0-98.0); MONOCYTES # (AUTO) 0.8 K/uL (0.0-1.0); MONOCYTES % (AUTO) 9.3 % (1.7-9.3); NEUTROPHILS # (AUTO) 6.5 K/uL (1.8-7.7); NEUTROPHILS % (AUTO) 71.8 % (40.0-70.0); PLATELET COUNT (AUTO) 227 K/uL (130-430); RED BLOOD CELL COUNT(AUTO) 4.43 MIL/uL (4.2-6.2); RED CELL DISTRIBUTION WIDTH 13.2 % (9.0-15.0); WHITE BLOOD COUNT (AUTO) 9.1 K/uL (4.8-10.8)
[2023-08-15] MEDS ORDERED: fentaNYL CITRATE/PF 100 MCG/2 ML AMP ONE (08:27)
[2023-08-15] MEDS ORDERED: ACETAMINOPHEN I.V. 1000 MG 100 ML IV ONE (08:28)
[2023-08-15] MEDS: NACL 0.9% 1,000 ML IV SCH (08:30)
[2023-08-15 08:45] LABS: ALANINE AMINOTRANSFERASE 18 U/L (12-78); ALBUMIN 3.3 g/dL (3.4-4.8); ANION GAP 8 (5-15); ASPARTATE AMINOTRANSFERASE 13 U/L (10-37); CARBON DIOXIDE 24 mmol/L (23-29); CHLORIDE 105 mmol/L (98-107); CREATININE 0.66 mg/dL (0.55-1.30); GLUCOSE 137 mg/dL (74-106); POTASSIUM 3.7 mmol/L (3.5-5.1); SODIUM SERUM 137 mmol/L (136-145); TOTAL BILIRUBIN 0.4 mg/dL (0.0-1.0); TOTAL PROTEIN, SERUM 6.3 g/dL (6.4-8.3); UREA NITROGEN, BLOOD 16 mg/dL (8-21)
[2023-08-15] MEDS: PANTOPRAZOLE SODIUM 40 MG/VIAL (PROTONIX) IVP SCH (09:00)
[2023-08-15] MEDS ORDERED: NALOXONE HCL 0.4 MG/ML AMP (NARCAN) IVP PRN ×3 (10:00)
[2023-08-15] MEDS ORDERED: HYDROmorphone 1 MG/ML INJ. CARTRIDGE IVP PRN ×2 (10:00)
[2023-08-15] MEDS ORDERED: KETOROLAC TROMETHAMINE 30 MG VIAL IM PRN (10:00)
[2023-08-15] MEDS ORDERED: hydrALAZINE HCL 20 MG/ML VIAL IV PRN (10:00)
[2023-08-15] MEDS ORDERED: ONDANSETRON HCL 4 MG/2 ML VIAL IVP PRN (10:00)
[2023-08-15] MEDS: DILTIAZEM HCL 120 MG CAP.SR.24H PO SCH (14:05)
[2023-08-15] MEDS: LOSARTAN POTASSIUM 50 MG TABLET (COZAAR) PO SCH (14:06)
[2023-08-15] MEDS: amLODIPine BESYLATE 10 MG TABLET PO SCH (14:06)
[2023-08-15] MEDS: CEFAZOLIN 2 GM IVPB PREMIX 50 ML IV SCH ×2 (14:07→22:11)
[2023-08-16 00:57] VITALS: BP_SYST 146; PULSE 90; RESP 18; TEMP 98.8
[2023-08-16 05:20] VITALS: BP_SYST 135; PULSE 78; RESP 15; TEMP 98.3; O2SAT 96
[2023-08-16] MEDS: CEFAZOLIN 2 GM IVPB PREMIX 50 ML IV SCH (05:59)
[2023-08-16 06:30] VITALS: O2SAT 97
[2023-08-16 08:00] VITALS: BP_SYST 139; PULSE 89; RESP 18; TEMP 96.6; O2SAT 98
[2023-08-16] MEDS ORDERED: CHOLECALCIFEROL (VITAMIN D3) 5,000 UNIT TABLET PO SCH (09:00)
[2023-08-16] MEDS ORDERED: ENOXAPARIN SODIUM 40 MG/0.4 ML SYRINGE SUBCUT SCH (09:00)
[2023-08-16] MEDS ORDERED: CHOL500013 PO (09:11)
[2023-08-16] MEDS ORDERED: ASPI-1393 PO (09:11)
[2023-08-16] MEDS ORDERED: CEPH250C PO (09:11)
[2023-08-16] MEDS: DILTIAZEM HCL 120 MG CAP.SR.24H PO SCH (09:28)
[2023-08-16] MEDS: LOSARTAN POTASSIUM 50 MG TABLET (COZAAR) PO SCH (09:29)
[2023-08-16] MEDS: amLODIPine BESYLATE 10 MG TABLET PO SCH (09:30)
[2023-08-16] MEDS: PANTOPRAZOLE SODIUM 40 MG/VIAL (PROTONIX) IVP SCH (09:33)
[2023-08-16 11:32] VITALS: BP_SYST 154; PULSE 79; RESP 16; TEMP 97; O2SAT 96
[2023-08-16 12:05] VITALS: BP_SYST 154; PULSE 79; RESP 18; TEMP 97.3; O2SAT 98
== END 2023-08-16 12:35 | disposition home health service (06) | DRG 465 ==
LOC: SED 09:15 → STU 12:06 → SMU 08-15 18:06
PROVIDERS: ADMIT Family Medicine; ATTEND Family Medicine
PROC: 0SPB0JZ Removal of Synthetic Substitute from Left Hip Joint, Open Approach (ICD-10-PCS; 2023-08-15)
PROC: 0QS734Z Reposition Left Upper Femur with Internal Fixation Device, Percutaneous Approach (ICD-10-PCS; principal; 2023-08-15 09:15)
DX: T84.84XA Pain due to internal orthopedic prosthetic devices, implants and grafts, initial encounter (principal); I11.9 Hypertensive heart disease without heart failure; I44.7 Left bundle-branch block, unspecified; Z88.5 Allergy status to narcotic agent
CPT/HCPCS: 36415; 71045; 73502; 76000; 80053; 81001; 81003; 82962; 83037; 84484; 85025; 85610-TC; 85730-TC; 88300; 93005; 96374; 99285; C1713; C1776; C9113; G0378; J0131; J0360; J0690; J1650; J3010; J3370; J3490; J7120